=== PATIENT | female | born 1980 | race Caucasian/White ===

== ENCOUNTER → 2021-04-26 11:15 | Outpatient (CLI) | payer BC, SELFPAY | PROVIDERS: PCP Family Medicine; Visit Provider Specialist | DX: R00.0 Tachycardia, unspecified (principal) | CPT/HCPCS: 93225; 93226 ==

== ENCOUNTER → 2021-04-28 15:43 | Outpatient (CLI) | payer BC, SELFPAY ==
--- NOTE | 2021-04-28 15:43 | MR_ITS ---
PROCEDURE INFORMATION: Exam: MR Cervical Spine Without Contrast Exam date and time: 04/28/2021 3:43 PM Age: 41 years old Clinical indication: Neck pain; Additional info: Weakness in 4 extremities TECHNIQUE: Imaging protocol: Multiplanar magnetic resonance images of the cervical spine without contrast. COMPARISON: No relevant prior studies available. FINDINGS: Vertebrae: Unremarkable. Spinal cord: Normal signal. No cord compression. C2-C3: No significant disc disease. No significant spinal stenosis. C3-C4: No significant disc disease. No significant spinal stenosis. C4-C5: C4-C5 small left paracentral disc protrusion without significant spinal canal or neural foraminal stenosis. C5-C6: C5-C6 moderate broad-based posterior disc protrusion with moderate left greater than right uncovertebral joint osteophytosis results in moderate right and mild left neural foraminal stenosis with mild spinal canal stenosis. C6-C7: C6-C7 moderate posterior disc extrusion with uncovertebral joint osteophytosis resulting in moderate bilateral neural foraminal stenosis, and moderate spinal canal stenosis with CSF fluid surrounding the cord. C7-T1: No significant disc disease. No significant spinal stenosis. Soft tissues: Unremarkable. Vertebral arteries: Expected flow voids in the vertebral arteries. 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
== END ==
PROVIDERS: PCP Family Medicine; Visit Provider Specialist
DX: C96.4 Sarcoma of dendritic cells (accessory cells) (principal); M62.81 Muscle weakness (generalized)
CPT/HCPCS: 72141; 76376